=== PATIENT | female | born 1945 | race Caucasian/White ===

== ENCOUNTER 2016-07-08 16:33 | Inpatient (IN) | payer MEDICARE, BC ==
[~2016-07-08] VITALS: Ht 162.6 cm; Wt 75.8 kg
[2016-07-08] MEDS ORDERED: DILAUDID 1 MG/ML AMP ONE (17:45)
[2016-07-08] MEDS ORDERED: ONDANSETRON 4 MG VIAL ONE (17:46)
[2016-07-08] MEDS ORDERED: PHARMACY TO DOSE ZOSYN IV SCH (19:50)
[2016-07-08] MEDS ORDERED: PHARMACY TO DOSE VANCOMYCIN IV SCH (19:50)
[2016-07-08] MEDS ORDERED: VANCOMYCIN 1,750 MG in SODIUM CHLORIDE 0.9% 500 ML IV STA (20:00)
[2016-07-08] MEDS ORDERED: PIPERACIL/TAZO 4.5GM/100ML 100 ML IV SCH (20:05)
[2016-07-08] MEDS ORDERED: ZOLPIDEM 5 MG TAB PO PRN (20:15)
[2016-07-08] MEDS ORDERED: MORPHINE 2 MG/ML SYR IV PRN (20:15)
[2016-07-08] MEDS ORDERED: CITALOPRAM 10 MG/5 ML PO SCH (21:00)
[2016-07-08 21:52] VITALS: BP_SYST 136; BP_SYST 146; RESP 20; TEMP 98
[2016-07-08] MEDS ORDERED: MORPHINE 2 MG/ML SYR IV ONE (23:10)
[2016-07-09] VITALS (8 sets, daily range): BP systolic 167–176; RESP 18–20; TEMP 98–99; Ht 162.6 cm; Wt 75.8 kg
[2016-07-09] MEDS ORDERED: MISSING DOSE XX ONE ×4 (00:10→20:30)
[2016-07-09] MEDS: DILAUDID 1 MG/ML AMP IV PRN ×8 (00:22→21:47)
[2016-07-09] MEDS ORDERED: SALINE FLUSH 10 ML FLUSH PRN (00:50)
[2016-07-09] MEDS: RIFAMPIN 300 MG CAP PO SCH ×3 (00:55→20:53)
[2016-07-09] MEDS: SODIUM CHLORIDE 0.9% FLUSH BAG 500 ML IV SCH (04:29)
[2016-07-09] MEDS: PANTOPRAZOLE 40 MG TAB PO SCH (06:02)
[2016-07-09] MEDS: LEVOTHYROXINE 0.1 MG TAB PO SCH (06:02)
[2016-07-09] MEDS: SALINE FLUSH 10 ML FLUSH SCH ×2 (08:03→20:56)
[2016-07-09] MEDS ORDERED: PANTOPRAZOLE 40 MG TAB PO SCH (09:00)
[2016-07-09] MEDS: VANCOMYCIN 1,500 MG in SODIUM CHLORIDE 0.9% 250 ML IV SCH ×2 (11:13→20:53)
[2016-07-09] MEDS ORDERED: KCL CR 10 MEQ CAP PO ONE (11:40)
[2016-07-09] MEDS: DIFLUPREDNATE EYE EACH SCH ×2 (11:40→22:59)
[2016-07-09] MEDS: [UNRECOGNIZED DRUG - OTHER] EYE EACH SCH ×2 (11:40→22:59)
[2016-07-09] MEDS: amLODIPine 5 MG TAB PO SCH (12:39)
[2016-07-09] MEDS ORDERED: MAGNEVIST 15ML IV ONE (15:19)
[2016-07-09] MEDS ORDERED: CITALOPRAM 20 MG TAB PO SCH (21:00)
[2016-07-10] VITALS (8 sets, daily range): BP systolic 155–177; RESP 16–22; TEMP 97.9–98.7
[2016-07-10] MEDS: [UNRECOGNIZED DRUG - OTHER] EYE EACH SCH ×2 (00:13→08:21)
[2016-07-10] MEDS: DIFLUPREDNATE EYE EACH SCH ×2 (00:13→08:21)
[2016-07-10] MEDS: DILAUDID 1 MG/ML AMP IV PRN ×6 (00:51→16:15)
[2016-07-10] MEDS: SODIUM CHLORIDE 0.9% FLUSH BAG 500 ML IV SCH (05:46)
[2016-07-10] MEDS: PANTOPRAZOLE 40 MG TAB PO SCH (05:58)
[2016-07-10] MEDS: LEVOTHYROXINE 0.1 MG TAB PO SCH (05:58)
[2016-07-10] MEDS: SALINE FLUSH 10 ML FLUSH SCH (08:20)
[2016-07-10] MEDS: RIFAMPIN 300 MG CAP PO SCH (08:21)
[2016-07-10] MEDS: amLODIPine 5 MG TAB PO SCH (08:21)
[2016-07-10] MEDS: VANCOMYCIN 1,500 MG in SODIUM CHLORIDE 0.9% 250 ML IV SCH (11:38)
== END 2016-07-10 17:20 | disposition short-term general hospital (02) | DRG 541 ==
LOC: ENRESERVTM → ENRESERVDT → ENRESERV → ER 16:33 → EMR 18:58 → ENPENDDIS 18:58 → 3NT 21:59
PROVIDERS: ADMIT Hospitalist; ATTEND Hospitalist
DX: M86.9 Osteomyelitis, unspecified (principal); I10 Essential (primary) hypertension; E86.0 Dehydration; E03.9 Hypothyroidism, unspecified; K90.0 Celiac disease; Z91.81 History of falling; H35.30 Unspecified macular degeneration; E86.1 Hypovolemia
CPT/HCPCS: 72170; 72197; 80048; 80053; 85025; 85652; 86141; 87040; 96365; 96375; 99222; 99233